=== PATIENT | female | born 1985 | race Caucasian/White ===

== ENCOUNTER 2025-01-01 04:15 | Emergency (ER) | payer MEDICAID ==
[~2025-01-01] VITALS: Ht 165.1 cm; Wt 80.1 kg
[2025-01-01 04:19] VITALS: O2SAT 100
[2025-01-01 05:02] LABS: BASOPHILS % 0.4 % (0.0-2.0); EOSINOPHILS % 0.9 % (0.0-5.0); HEMATOCRIT. 38.5 % (36.0-48.0); HEMOGLOBIN. 12.8 g/dL (12.0-16.0); LYMPHOCYTES % 16.8 % (20.0-50.0); MEAN PLATELET VOLUME 7.3 fl (7.4-10.4); MONOCYTES % 5.7 % (2.0-8.0); NEUTROPHILS % 76.2 % (40.0-76.0); PLATELET 365 x1000/uL (130-400); RED BLOOD CELL COUNT 4.49 mill/uL (4.2-5.4); RED CELL DISTRIBUTION WIDTH 13.4 % (11.6-14.6)
[2025-01-01 05:16] LABS: CLARITY URINE CLEAR (CLEAR); COLOR URINE YELLOW (YELLOW); GLUCOSE URINE NEGATIVE (NEGATIVE); KETONES URINE NEGATIVE (NEGATIVE); LEUKOCYTE ESTERASE URINE NEGATIVE (NEGATIVE); NITRITE URINE NEGATIVE (NEGATIVE); OCCULT BLOOD URINE NEGATIVE (NEGATIVE); PH URINE 6.5 (4.5-8.0); PROTEIN URINE NEGATIVE (NEGATIVE); SPECIFIC GRAVITY URINE 1.004 (1.005-1.030); UROBILINOGEN URINE 0.2 E.U./dL (0.2-1.0)
[2025-01-01 05:34] LABS: CREATININE 0.6 mg/dL (0.6-1.0)
[2025-01-01 05:35] LABS: UREA NITROGEN BLOOD < 5 mg/dL (9-23)
[2025-01-01 05:36] LABS: ASPARTATE AMINOTRANSFERASE 17 IU/L (<34)
[2025-01-01 05:37] LABS: BILIRUBIN DIRECT < 0.1 mg/dL (<=3.0); BILIRUBIN TOTAL 0.3 mg/dL (0.1-1.0)
[2025-01-01] MEDS: SODIUM CHLORIDE 0.9% 1,000 ML IV ONE (05:39)
[2025-01-01] MEDS: ONDANSETRON HCL 4MG/2ML INJ IV ONE (05:39)
[2025-01-01] MEDS: ACETAMINOPHEN 325MG TABLET PO ONE (05:39)
[2025-01-01 05:45] LABS: PROTEIN TOTAL 7.0 g/dL (6.0-8.3)
[2025-01-01] MEDS ORDERED: DOCU-138 PO (05:54)
[2025-01-01] MEDS ORDERED: TOPUD PO (05:54)
[2025-01-01 06:06] LABS: B-HCG QUANTITATIVE 15601 mIU/mL (<6)
[2025-01-01 07:02] VITALS: BP 109/70; PULSE 78; RESP 15; TEMP 36.9; O2SAT 99
== END 2025-01-01 07:04 | disposition home or self-care (01) ==
LOC: ER 04:15
DX: O20.0 Threatened abortion (principal); O26.892 Other specified pregnancy related conditions, second trimester; Z3A.18 18 weeks gestation of pregnancy
CPT/HCPCS: 99285; 96374; 76805; 80076; 80048; 81003; 84702; 83690; 85025; 86850; 86900; 86901; 36415; J2405; J7030